=== PATIENT | male | born 1945 | race Caucasian/White ===

== ENCOUNTER 2016-12-07 21:51 | Emergency (ER) | payer OTHER ==
[~2016-12-07] VITALS: Ht 177.8 cm; Wt 65.2 kg
[~2016-12-07 21:51] MED LIST: ACYC-57 PO; ASPI81TA28 PO; ATEN-173 PO; ATOR-22 PO; OMEP40CA PO
[2016-12-07 21:57] VITALS: TEMP 36.7; O2SAT 96; Ht 177.8 cm; Wt 65.2 kg
[2016-12-07 22:04] LABS: BASO ABS # 0.18 K/uL (0-0.2); COMPLETE YES; EOS % 8.3 %; HEMATOCRIT 40.2 % (42-52); IG% 0.2 %; LYMPH % 25.2 %; LYMPH ABS # 2.23 K/uL (1.2-3.4); MEAN CORPUSCULAR HEMOGLOBIN 32.2 pg (25-34); MEAN CORPUSCULAR HGB CONC 32.8 g/dl (32-36); MONO % 9.7 %; NEUT % 54.6 %; PLATELET COUNT 129 K/uL (130-400); WHITE BLOOD COUNT 8.84 K/uL (4.8-10.8)
[2016-12-07 22:38] LABS: ALKALINE PHOSPHATASE 67 U/L (45-117); ALT/SGPT 19 U/L (12-78); BLOOD UREA NITROGEN 20 mg/dl (7-18); BUN/CREATININE RATIO 15.7 (10-20); CARBON DIOXIDE 25 mmol/L (21-32); CHLORIDE 106 mmol/L (98-107); GLUCOSE 154 mg/dl (70-99); SODIUM 139 mmol/L (136-145)
[2016-12-07 22:43] LABS: CALCIUM 8.3 mg/dl (8.5-10.1)
--- NOTE | 2016-12-07 22:58 | DIAGNOSTIC IMAGING REPORT ---
HEAD CT NONCONTRAST CT DOSE: 614.27 mGy.cm HISTORY: dizzy/syncope TECHNIQUE: Multiaxial CT images of the head were performed without the use of intravenous contrast. Automated exposure control was utilized for this study. Comparison: None. Findings: The paranasal sinuses and mastoid air cells are clear. The calvarium and skull base are intact. There is no mass, hematoma, midline shift, acute infarct. White matter hypodensity is nonspecific but suggestive of microvascular ischemic change. The ventricles and sulci demonstrate mild age-related involutional changes. 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 Impression: No acute intracranial abnormality. Atrophy and microvascular ischemic changes. Electronically signed by: Tejas Pompa M.D. 12/07/2016 10:56 PM Dictated Date/Time: 12/07/2016 10:54 PM
[2016-12-07 23:11] LABS: POTASSIUM 4.2 mmol/L (3.5-5.1)
[2016-12-07 23:18] LABS: AST/SGOT 13 U/L (15-37); MAGNESIUM 2.3 mg/dl (1.8-2.4)
[2016-12-07 23:20] VITALS: BP 172/80; PULSE 78; O2SAT 94
--- NOTE | 2016-12-07 23:51 | EMERGENCY ROOM VISIT NOTE ---
ED Visit Note First contact with patient: 21:52 I did evaluate and examine this patient myself. I did guide management for the patient. I agree with the APC's assessment as discussed. Please see the APC's dictation for further details. I did independently review the 12-lead EKG, chest x-ray, CT of the head and blood work. The patient is presenting with a syncopal episode today. He states he was sitting at his desk and when he stood up he passed out. He states that he frequently passes out and this is not unusual for him. He has no other symptoms and denies any chest pain or shortness of breath. He does have some headache from hitting his head on the ground. We did recommend hospitalization for further evaluation given his multiple medical problems. He declined admission and wanted to go back to the [facility] and follow up with the sn[facility] doctor. He states the only reason they sent him here was because his EKG looked different from his prior EKG. His 12- lead EKGs here are unremarkable without any acute changes consistent with acute ischemia. The patient was transferred back to the snf.
--- NOTE | 2016-12-08 | EMERGENCY ROOM VISIT NOTE ---
History First contact with patient: 21:52 Chief Complaint: SYNCOPE (NEAR SYNCOPE) Stated Complaint: SYNCOPE /FR [facility] Nursing Triage Summary: pt states has a hx of passing out, states he normally feels it coming on and he got lightheaded and dizzy, but states he also had some cp yesterday. pmhx of cabg x's2, aortic valve replacement, htn, syncope, History of Present Illness The patient is a 71 year old male who presents to the Emergency Room with complaints of recurrent syncopal episode. Patient had 2 single episodes today. He went to the [facility] and they sent him here. Supposedly had an abnormal EKG. He does not have this here. Patient states he's been passing out for greater than 10 years. Unclear etiology. He is supposed to have tilt testing in the near future. Patient states he got lightheaded and briefly passed out earlier today and then later today he just passed out with no prodromal symptoms. He states he's had both of these episodes several times in the past. This is not new for him. Patient denies chest pain, dyspnea, headache, facial pain, neck pain, back pain, abdominal pain, leg pain, numbness, tingling , weakness or any other medical complaints. Patient states he feels fine. He states he is only here as medical had him come here. Review of Systems See HPI for pertinent positives & negatives. A total of 10 systems reviewed and were otherwise negative. Past Medical/Surgical History Coronary artery disease, syncope, hypertension, hyperlipidemia, splenectomy, cholelithiasis Social History Smoking Status: Current Every Day Smoker Drug Use: none Marital Status: single Occupation Status: other (prisoner) Current/Historical Medications Scheduled Acyclovir (Zovirax), 400 MG PO DAILY Aspirin (Aspirin Ec), 81 MG PO DAILY Atenolol (Tenormin), 50 MG PO QD Atorvastatin (Lipitor), 20 MG PO DAILY Omeprazole (Prilosec), 40 MG PO DAILY Allergies Coded Allergies: No Known Allergies (Unverified , 12/07/16) Physical Exam Vital Signs Date Time Temp Pulse Resp B/P Pulse Ox O2 Delivery O2 Flow Rate FiO2 12/07/16 23:20 68 18 164/76 94 Room Air 69 177/75 78 172/81 12/07/16 23:20 78 18 172/80 94 Room Air 12/07/16 22:03 79 12/07/16 21:57 36.7 79 21 184/83 96 Room Air 12/07/16 21:57 96 Room Air Physical Exam VITALS: Vitals are noted on the nurse's note and reviewed by myself. Vital signs stable. GENERAL: Pleasant male following commands appropriately, in no acute distress, nondiaphoretic, well-developed well-nourished. SKIN: The skin was without rashes, erythema, edema, or bruising. There is no tenting of the skin. Capillary reflex less than 2 seconds. HEAD: Normocephalic atraumatic. EARS: External auditory canals clear, tympanic membranes pearly hanley without erythema or effusion bilaterally. EYES: Pupils equal round and reactive to light and accommodation. Conjunctivae without injection, sclerae without icterus. Extraocular movements intact. NOSE: Patent, turbinates without inflammation or discharge. No sinus tenderness. MOUTH: Mucous membranes moist. Pharynx without erythema or exudate. Uvula midline. Airway patent. Tongue does not deviate. NECK: Supple without nuchal rigidity. No lymphadenopathy. No thyromegaly. Cervical spine is nontender. No JVD. HEART: Regular rate and rhythm 2/6 systolic murmur LUNGS: Clear to auscultation bilaterally without wheezes, rales or rhonchi. No dullness to percussion. No retractions or accessory muscle use. ABDOMEN: Positive bowel sounds x 4. Normal tympanic percussion. Soft, nontender, without masses or organomegaly. Gordon sign negative. No guarding or rebound tenderness. MUSCULOSKELETAL: No muscle atrophy, erythema, or edema noted. NEURO: Patient was alert and oriented to person place and time. Normal sensation to light and sharp touch. No focal neurological deficits. Cranial nerves II through XII grossly intact. No pronator drift. Cerebellar exam intact. Medical Decision & Procedures Laboratory Results 12/07/16 21:42 Red Blood Count 4.10, Mean Corpuscular Volume 98.0, Mean Corpuscular Hemoglobin 32.2, Mean Corpuscular Hemoglobin Concent 32.8, Mean Platelet Volume 11.0, Neutrophils (%) (Auto) 54.6, Lymphocytes (%) (Auto) 25.2, Monocytes (%) (Auto) 9.7, Eosinophils (%) (Auto) 8.3, Basophils (%) (Auto) 2.0, Neutrophils # (Auto) 4.82, Lymphocytes # (Auto) 2.23, Monocytes # (Auto) 0.86, Eosinophils # (Auto) 0.73, Basophils # (Auto) 0.18 12/07/16 21:42 12/07/16 22:53 Test 12/07/16 21:42 12/07/16 22:53 White Blood Count 8.84 K/uL (4.8-10.8) Red Blood Count 4.10 M/uL (4.7-6.1) Hemoglobin 13.2 g/dL (14.0-18.0) Hematocrit 40.2 % (42-52) Mean Corpuscular Volume 98.0 fL (80-100) Mean Corpuscular Hemoglobin 32.2 pg (25-34) Mean Corpuscular Hemoglobin Concent 32.8 g/dl (32-36) Platelet Count 129 K/uL (130-400) Mean Platelet Volume 11.0 fL (7.4-10.4) Neutrophils (%) (Auto) 54.6 % Lymphocytes (%) (Auto) 25.2 % Monocytes (%) (Auto) 9.7 % Eosinophils (%) (Auto) 8.3 % Basophils (%) (Auto) 2.0 % Neutrophils # (Auto) 4.82 K/uL (1.4-6.5) Lymphocytes # (Auto) 2.23 K/uL (1.2-3.4) Monocytes # (Auto) 0.86 K/uL (0.11-0.59) Eosinophils # (Auto) 0.73 K/uL (0-0.5) Basophils # (Auto) 0.18 K/uL (0-0.2) RDW Standard Deviation 50.1 fL (36.4-46.3) RDW Coefficient of Variation 13.9 % (11.5-14.5) Immature Granulocyte % (Auto) 0.2 % Immature Granulocyte # (Auto) 0.02 K/uL (0.00-0.02) Anion Gap 8.0 mmol/L (3-11) Est Creatinine Clear Calc Drug Dose 48.1 ml/min Estimated GFR () 63.6 Estimated GFR (Non- 54.9 BUN/Creatinine Ratio 15.7 (10-20) Calcium Level 8.3 mg/dl (8.5-10.1) Total Bilirubin 0.4 mg/dl (0.2-1) Alanine Aminotransferase (ALT/SGPT) 19 U/L (12-78) Alkaline Phosphatase 67 U/L (45-117) Troponin I < 0.015 ng/ml (0-0.045) Total Protein 7.2 gm/dl (6.4-8.2) Albumin 3.6 gm/dl (3.4-5.0) Thyroid Stimulating Hormone (TSH) 2.630 uIu/ml (0.300-4.500) Magnesium Level 2.3 mg/dl (1.8-2.4) Direct Bilirubin < 0.1 mg/dl (0-0.2) Aspartate Amino Transf (AST/SGOT) 13 U/L (15-37) ED Course Prior records/ancillary studies reviewed. Triage Nursing notes reviewed. Additional history obtained from correction officers. The patient's history was concerning for syncope. Differential diagnosis: Etiologies such as vasovagal event, infection, hypoglycemia, electrolyte abnormalities, cardiac sources, intracerebral event, toxicologic, neurologic, as well as others were entertained. Physical examination: Patient is alert, interactive and well-appearing ER treatment provided: IV hydration with normal saline On reassessment the patient felt better. Diagnostics interpretation by me: ECG: Normal sinus, normal intervals, no acute ST-T wave changes. Impression normal sinus rhythm interpreted by myself The labs revealed negative troponin. No leukocytosis Imaging studies: cranial bleed on head CT. Chest x-ray with no acute consolidation, pneumothorax or free air per my interpretation This appears to be consistent with gaping which is recurrent for the patient. He was offered admission and declined. He understands the risks involved such as cardiac and or neurological problems/. He was strongly encouraged to see the [place] [facility] doctor tomorrow or here in the ER sooner for further workup. Patient verbalized understanding this. He still requested to leave. He was discharged in the custody of the correction officers. Patient is neurovascularly and neurologically intact. He's had been having recurrent syncope for greater than 10 years. This is not new for him. Echo was reviewed from a couple months ago. By the evaluation outlined above emergent etiologies such as infection, hypoglycemia, electrolyte abnormalities, cardiac sources, intracerebral event, toxicologic, neurologic,as well as others were deemed relatively unlikely. The pt informed about the findings as listed above. All questions were answered and pleased with the treatment. Return instructions were outlined and the patient was discharged in stable condition. Referral: The patient was referred back to their primary care physician for follow-up tomorrow for a recheck of the current condition. Case reviewed with my attending Medical Decision As above Impression Primary Impression: Syncope Departure Information Dispostion Other Condition FAIR Forms HOME CARE DOCUMENTATION FORM, IMPORTANT VISIT INFORMATION Patient Instructions Syncope, My [facility] Additional Instructions Strongly recommend that you follow-up for your recurrent syncopal episodes. Rest and drink plenty of fluids as tolerated. Continue current medications. Avoid strenuous activities until cleared by your family doctor. Return to the ER immediately for worsening or persistent syncope, abdominal pain , vomiting, fevers, chest pains, difficulty breathing, worsening of your condition, or as needed. Follow up with your primary physician tomorrow for a recheck of your current condition. Problem Qualifiers Primary Impression: Syncope Syncope type: unspecified Qualified Codes: R55 - Syncope and collapse
--- NOTE | 2016-12-08 08:17 | DIAGNOSTIC IMAGING REPORT ---
CHEST 2 VIEWS ROUTINE HISTORY: syncope COMPARISON: Chest 05/13/2013. FINDINGS: Mild interstitial thickening which is likely chronic. The heart is normal in size. Poststernotomy changes. Mild emphysema. No new focal lung consolidations to suggest pneumonia. No evidence for pulmonary edema. IMPRESSION: Emphysema. No acute process within the chest. Electronically signed by: Tejas Pompa M.D. 12/08/2016 8:16 AM Dictated Date/Time: 12/08/2016 8:15 AM
== END 2016-12-07 23:58 | disposition home or self-care (01) ==
LOC: EDBD 21:51 → C.EDA 21:51
DX: R55 Syncope and collapse (principal); R51 Headache; Z95.1 Presence of aortocoronary bypass graft; Z95.2 Presence of prosthetic heart valve; I10 Essential (primary) hypertension; I25.10 Atherosclerotic heart disease of native coronary artery without angina pectoris; E78.5 Hyperlipidemia, unspecified; Z90.81 Acquired absence of spleen; F17.210 Nicotine dependence, cigarettes, uncomplicated; Z79.82 Long term (current) use of aspirin; Z79.899 Other long term (current) drug therapy

== ENCOUNTER → 2017-02-18 | Outpatient (CLI) | payer OTHER ==
[~2017-02-18] MED LIST changes: -ACYC-57 PO; +ACYC1CAP8 PO; +REGADENOSON 0.4 MG/5 ML SYR ONE
--- NOTE | 2017-02-20 13:08 | MYOCARDIAL PERFUSION SCAN ---
ONE-DAY NUCLEAR MEDICINE TECHNETIUM-99M CARDIOLITE MYOCARDIAL PERFUSION SCAN CLINICAL HISTORY: The patient has known coronary artery disease having undergone bypass surgery previously. He now presents with a chest pain syndrome. COMPARISON: None. TECHNIQUE: For the stress portion of the study, 32.3 mCi of Technetium 99 m Cardiolite IV was injected at 11:35 a.m. 02/18/2017. Thirty minutes following the injection, imaging of the heart was performed in multiple projection. For the rest portion of the study, 10.0 mCi of Technetium 99 m Cardiolite was injected IV at 10 a.m. One hour following the injection, imaging of the heart was performed in the same projections. For the stress portion of the study, 0.4 mg of Lexiscan was injected intravenously as per protocol. The patient did not experience chest discomfort nor EKG changes. Following the study, the patient was hemodynamically stable without complaints. FINDINGS: The short axis, vertical long axis, and horizontal long axis images were reviewed in detail. There is normal myocardial perfusion at both stress and rest, thus excluding a prior myocardial infarction and stress induced myocardial ischemia. Left ventricle demonstrates normal systolic function without wall motion abnormality. The left ventricular ejection fraction is 62%. IMPRESSIONS: 1. No scintigraphic evidence of a prior myocardial infarction or stress induced myocardial ischemia. 2. No Lexiscan induced chest pain. 3. No Lexiscan induced EKG changes. 4. Normal left ventricular systolic function with an ejection fraction of 62%. There are no wall motion abnormalities.
== END | disposition home or self-care (01) ==
LOC: C.NUCL 09:39
PROVIDERS: ATTEND Internal Medicine
DX: I20.9 Angina pectoris, unspecified (principal); I10 Essential (primary) hypertension; R55 Syncope and collapse; I25.10 Atherosclerotic heart disease of native coronary artery without angina pectoris; I35.9 Nonrheumatic aortic valve disorder, unspecified; E78.00 Pure hypercholesterolemia, unspecified; N18.9 Chronic kidney disease, unspecified; Z79.899 Other long term (current) drug therapy

== ENCOUNTER → 2017-03-06 | Outpatient (CLI) | payer OTHER ==
[~2017-03-06] MED LIST changes: +OPTIRAY 320 IV PRN; -REGADENOSON 0.4 MG/5 ML SYR ONE
--- NOTE | 2017-03-06 10:46 | DIAGNOSTIC IMAGING REPORT ---
CT ANGIOGRAPHY OF THE ABDOMEN CLINICAL HISTORY: Aortic aneurysm. COMPARISON STUDY: None available at time of interpretation. TECHNIQUE: Helical axial images of the abdomen were obtained during arterial phase following intravenous injection of 93 cc Optiray 320 IV. Sagittal and coronal reconstructions were viewed as well as maximal intensity projections on an independent 3-D workstation. FINDINGS: Arterial phase images of the liver, adrenal glands and pancreas are unremarkable. There are small gallstones within the gallbladder. There is no biliary or pancreatic ductal dilatation. A 2.9 cm water attenuation lesion arising from the lower pole of the left kidney is consistent with a cyst. A 9 mm hypodense lesion within the upper pole of the left kidney is too small to characterize but likely reflects a cyst. There is no abdominal lymphadenopathy or ascites. Caliber of visualized small and large bowel is normal. Colonic diverticulosis is noted. There are no suspicious osseous lesions. There is mild aneurysmal dilatation of the distal descending thoracic aorta which measures 4.1 x 4 cm. Mixing artifact is noted within the aorta. An infrarenal abdominal aortic aneurysm is noted with aneurysmal dilatation beginning immediately distal to the takeoff of the renal arteries. The abdominal aorta measures 4.7 x 4.3 cm. There is eccentric mural thrombus. There is no evidence for rupture. Extensive atherosclerotic plaque of the abdominal aorta and major branch vessels is noted. There is moderate stenosis at the origin the celiac axis. Superior mesenteric and inferior mesenteric arteries are patent. Mild dilatation of visualized portions of the left common iliac artery is noted, measuring 1.9 cm. IMPRESSION: 1. 4.7 x 4.3 cm infrarenal abdominal aortic aneurysm. Aneurysmal dilatation begins immediately distal to the takeoff of the renal arteries. Extensive atherosclerotic plaque with mural thrombus. Mild dilatation of visualized portions of the proximal left common iliac artery. No rupture. No abdominal aortic dissection. 2. Mild dilatation of the distal descending thoracic aorta which measures 4.1 x 4 cm. 3. 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 4. Cholelithiasis. Electronically signed by: Alphonse Leal M.D. 03/06/2017 10:45 AM Dictated Date/Time: 03/06/2017 10:33 AM
== END ==
LOC: C.CTS 09:47
PROVIDERS: ATTEND Internal Medicine
DX: I71.9 Aortic aneurysm of unspecified site, without rupture (principal)

== ENCOUNTER 2017-06-23 11:30 | Observation (INO) | payer OTHER ==
[~2017-06-23] VITALS: Ht 177.8 cm; Wt 66.7 kg
[2017-06-23] MEDS: CEFAZOLIN 1000MG IV PUSH 5 ML IV SCH ×2 (10:45→15:44)
[~2017-06-23 11:30] MED LIST changes: +ACYC-57 PO; -ACYC1CAP8 PO; +LACTATED RINGER'S 1000ML 1,000 ML IV SCH; -OPTIRAY 320 IV PRN
[2017-06-23] MEDS ORDERED: METO25TA3 PO (11:45)
[2017-06-23] MEDS ORDERED: IRBE1TAB50 PO (11:45)
[2017-06-23] MEDS ORDERED: ISOSPOW2 (11:45)
[2017-06-23 11:50] VITALS: BP 195/90; PULSE 65; TEMP 36.5; O2SAT 98; BMI 22.0
[2017-06-23] MEDS ORDERED: MIDAZOLAM HCL 5 MG/ML 1 ML VIAL ONE (12:58)
[2017-06-23] MEDS ORDERED: FENTANYL CITRATE INJ 50 MCG/1 ML 2 ML VIAL ONE (12:58)
[2017-06-23] MEDS ORDERED: BACITRACIN 50000 UNIT VIAL ONE (12:59)
[2017-06-23] MEDS ORDERED: LIDOCAINE HCL 1% 20 ML VIAL ONE (12:59)
--- NOTE | 2017-06-23 13:10 | History & Physical Bridge Note ---
H&P Re-Evaluation Bridge Note: I have examined the patient, reviewed the History & Physical and in the interval since the performance of the History & Physical I have noted the following changes of clinical significance: No changes noted. He has had several more episodes of syncope and loop recorder interrogation shows further episodes of extreme bradycardia and long pauses. I reviewed the indications, procedure, risks and alternatives of pacer implantation and loop recorder explantation with patient as well an conscious sedation and he understands and agrees to proceed. Consent for surgery and conscious sedation obtained.
--- NOTE | 2017-06-23 13:11 | Procedure Note ---
Pre-Mod Sedation Assessment General Date of Moderate Sedation: Jun 23, 2017. Vital Signs: Vital Signs Past 12 Hours Date Time Temp Pulse Resp B/P (MAP) Pulse Ox O2 Delivery O2 Flow Rate FiO2 06/23/17 11:50 36.5 65 18 195/90 (125) 98 Room Air Review Cardiovascular: regular rate, rhythm Abdomen: normal bowel sounds Lungs: lungs clear Airway Class: II Pre-Sedation Airway Assessment Able to Visualize Vocal Cords: Yes Short Thick Neck: No Hx of Sleep Apnea: No Smoking Status: Current Every Day Smoker Mallampati Classification: Class II ASA Classification: Class III Procedure Planning Contraindications-for Mod Sed: None Yes Notes The planned sedation has been discussed with the patient and consent obtained. I have identified the patient, determined the appropriateness of sedation and have assessed the patient immediately prior to the procedure. All medicine(s) and interventions are by my order.
[2017-06-23] MEDS ORDERED: BACITRACIN OINT 0.9 GM PKT ONE (14:25)
--- NOTE | 2017-06-23 14:56 | [facility] Operative Report ---
Operative Report Operative Date Jun 23, 2017. Pre-Operative Diagnosis Sinus node dysfunction Post-Operative Diagnosis same Procedure(s) Performed 1. Dual-chamber pacemaker implantation 2. Loop recorder explantation1 Surgeon Dr. Allan Ply Bander Surgeon(s) none Estimated Blood Loss 20 cc Findings Good pacemaker lead position, good measurements. Successful loop recorder explantation Specimens Loop recorder, return to Medtronic Anesthesia local with sedation Complication(s) None Disposition PCU Description of Procedure After obtaining informed consent for the procedure, the patient was brought to the laboratory and prepped and draped in the standard sterile manner. The left prepectoral region was anesthetized with 1% lidocaine local anesthetic and left axillary venipuncture was performed by percutaneous technique and a guidewire placed through the left subclavian vein into the superior vena cava. The area was further infiltrated with 1% lidocaine local anesthetic and a 5 cm incision was made parallel to the left clavicle and 2 cm below it and carried down to the anterior pectoralis fascia. A pacemaker pocket was formed by blunt dissection anterior to the pectoralis fascia and a bacitracin-soaked sponge (50, 000 units in 50 cc normal saline solution) was placed in the pocket. An 8 [place] Medtronic lead introducer was placed over the guidewire into the left subclavian vein, the dilator and guidewire were removed and a bipolar active fixation steroid tipped ventricular lead was advanced through the introducer into the superior vena cava. A guidewire was placed through the introducer and the introducer was stripped from the lead and guidewire. Another 8 [place] Medtronic lead introducer was placed over the guidewire into the left subclavian vein, the dilator and guidewire were removed and a bipolar active fixation steroid tipped atrial lead was advanced through the introducer into the superior vena cava. A guidewire was placed back through the introducer and the introducer was stripped from the lead and guidewire. Using a curved stylette the ventricular lead was advanced through the right ventricular outflow tract into the pulmonary artery and then using a straight stylette was positioned in the right ventricular apex. The screw was extended fixing the lead in position. Pacing and sensing thresholds were evaluated in bipolar configuration and are recorded on the implant data sheet. Using a curved stylette the atrial lead was positioned in the region of the atrial appendage and the screw extended fixing the lead in position. Pacing and sensing thresholds were evaluated in bipolar configuration and are recorded on the implant data sheet. Once the leads were in position they were attached to the anterior pectoralis fascia using 2 sutures of 2-0 silk around each lead collar. The bacitracin- soaked sponge was removed from the pocket, hemostasis was obtained, the pacemaker was attached to the leads and placed in the pocket with the leads coiled beneath it. The incision was closed with a running double subcutaneous closure of 3-0 V-Lock absorbable suture, followed by running subcuticular skin closure of 4-0 Vicryl absorbable suture. Bacitracin ointment was placed on the incision and a pressure dressing applied. The patient remained prepped and draped in the standard sterile manner for a loop recorder removal. The area was infiltrated with 1% lidocaine local anesthetic and a 1 cm incision was made through the old implant scar and carried down to the loop recorder. The loop recorder was dissected free of tissue and explanted. The incision was closed with a subcutaneous continuous closure of 4-0 Vicryl followed by running subcuticular skin closure of 4-0 Vicryl. Steri-Strips were applied and bacitracin ointment was placed on the incision. A dressing was applied. I attest to the content of the Intraoperative Record and any orders documented therein. Any exceptions are noted below.
[2017-06-23] MEDS ORDERED: KETOROLAC TROMETHAMINE 10 MG TAB PO PRN (15:00)
[2017-06-23] MEDS ORDERED: ACETAMINOPHEN 325 MG TAB PO PRN (15:00)
[2017-06-23 15:03] VITALS: BP 179/79; PULSE 80; TEMP 36.4; O2SAT 94; Ht 177.8 cm; Wt 66.7 kg
--- NOTE | 2017-06-23 15:05 | Procedure Note ---
Post-Mod Sedation Assessment General Date of Moderate Sedation Jun 23, 2017. Vital Signs: Vital Signs Past 12 Hours Date Time Temp Pulse Resp B/P (MAP) Pulse Ox O2 Delivery O2 Flow Rate FiO2 06/23/17 14:40 69 16 122/66 (84) 100 Nasal Cannula 3 06/23/17 11:50 36.5 65 18 195/90 (125) 98 Room Air Review - Discharge Criteria Vital Signs Stable: Yes Alert/Oriented/Conversant: Yes Returned to Baseline Mental St: Yes Nausea Absent/Minimal: Yes Pain/Discomfort/Absent/Minimal: Yes Normal/Baseline Respirations: Yes Active Bleeding?: No
[2017-06-23 19:17] VITALS: BP 177/74; PULSE 95; TEMP 36.8; O2SAT 94
[2017-06-23] MEDS: CEFAZOLIN IV 1,000 MG in SYRINGE 0 ML IV SCH (20:23)
[2017-06-23 23:38] VITALS: BP 124/61; PULSE 68; TEMP 37.6; O2SAT 92
[2017-06-24 03:45] VITALS: BP 131/68; PULSE 60; TEMP 37; O2SAT 94
[2017-06-24] MEDS: CEFAZOLIN IV 1,000 MG in SYRINGE 0 ML IV SCH ×2 (03:47→11:49)
--- NOTE | 2017-06-24 07:03 | DIAGNOSTIC IMAGING REPORT ---
CHEST 2 VIEWS ROUTINE CLINICAL HISTORY: Chest x-ray status post pacemaker placement COMPARISON STUDY: 11/29/2016 FINDINGS: The cardiac and mediastinal contours remain stable. There is been interval placement of a left subclavian dual-chamber central venous pacemaker. On the lateral view, the ventricular electrode extends far anteriorly. Its exact position cannot be determined on conventional radiographs. There is blunting of the lateral costophrenic angles. There are postsurgical changes of midline sternotomy and aortic valve replacement. There is pulmonary emphysema. There is no lobar consolidation. No pneumothorax is visualized. IMPRESSION: 1. No evidence of pneumothorax status post placement of a left subclavian dual-chamber central venous pacemaker 2. On the lateral view the ventricular lead extends far anteriorly. Its exact position cannot be determined on conventional radiographs. Electronically signed by: Naif Spangler M.D. 06/24/2017 7:02 AM Dictated Date/Time: 06/24/2017 7:00 AM
[2017-06-24 08:12] VITALS: BP 112/76; PULSE 69; TEMP 36.9; O2SAT 97
[2017-06-24] MEDS ORDERED: PANTOprazole SOD 40 MG TAB PO SCH (09:00)
[2017-06-24] MEDS ORDERED: ATORVASTATIN 20 MG TAB PO SCH (09:00)
[2017-06-24] MEDS ORDERED: ASPIRIN 81 MG ECTAB PO SCH (09:00)
[2017-06-24] MEDS ORDERED: IRBESARTAN 150 MG TAB PO SCH (09:00)
--- NOTE | 2017-06-24 09:41 | Cardiology Follow-Up ---
Subjective Date of Service: Jun 24, 2017. Pt evaluation today including: conversation w/ patient, physical exam, review of studies, review of inpatient medication list History of Present Illness Doing well post-pacemaker, he has no discomfort. He tells me that he feels better in general after pacemaker implantation than before. No further spells overnight. Social History Smoking Status: Current Every Day Smoker History of Alcohol Use: No Review of Systems Respiratory: No shortness of breath Cardiac: No chest pain Objective Vital Signs Past 12 Hours Date Time Temp Pulse Resp B/P (MAP) Pulse Ox O2 Delivery O2 Flow Rate FiO2 06/24/17 08:12 36.9 69 18 112/76 (88) 97 06/24/17 04:00 Room Air 06/24/17 03:45 37.0 60 18 131/68 (89) 94 Room Air 06/23/17 23:59 Room Air 06/23/17 23:38 37.6 68 18 124/61 (82) 92 Last Recorded Weight-Kilograms: 66.700 Physical Exam Constitutional: Level of Distress: NAD Lungs: Auscultation: breath sounds normal Cardiovascular: Heart Auscultation: RRR, no rubs Extremities: no edema The pacemaker site is clean and dry, no swelling or hematoma. Ecchymosis as expected is present. The loop recorder site had a slight amount of bleeding on the dressing. Both dressings changed. Data Imaging: Chest x-ray shows good lead placement, no pneumothorax EKG: Postop electrocardiogram shows appropriate pacemaker inhibition. No significant abnormality. Telemetry reviewed: Telemetry monitoring shows appropriate intermittent atrial pacing. No ventricular pacing. Pacemaker evaluation: Good pacing and sensing characteristics. Assessment and Plan #1. Postop day #1: Doing well post-pacemaker implantation and loop recorder explantation. The sites look good, the pacemaker is working well there is no pneumothorax on x-ray. Stable for discharge after his last dose of antibiotics.
[2017-06-24] MEDS ORDERED: TPRSR/50 PO (09:45)
--- NOTE | 2017-06-24 10:19 | Discharge Instructions ---
Discharge Instructions Date of Service Jun 24, 2017. Admission Reason for Admission: -- Syncope -- Sinus Arrest -- Pacemaker Implantation. -- Sinus Node Dysfunction. -- Removal of Med[employer] LINQ ILR. Secondary Diagnoses: -- CAD s/p CABG. -- Aortic and Mitral Valvular Heart Disease. -- Hypertension. -- Dyslipidemia. -- AAA. -- PAD. -- Carotid Bruit. -- ITP. Discharge Discharge Diagnosis / Problem: Sinus Node Arrest / Syncope s/p Dual Chamber Pacemaker. Discharge Goals Goal(s): Improve function, Improve disease control, Therapeutic intervention Activity Recommendations Activity Limitations: per Instructions/Follow-up section (Do not lift your Left Arm above the level of your shoulder for 3 weeks.) Lifting Limitations: no more than 5 pounds (No lifting > 5 pounds with Left arm for 3 weeks.) Exercise/Sports Limitations: gradually increase as tolerated May Resume Sexual Activity: after follow-up appointment Shower/Bathe: may shower/bathe in 3 days, keep incision dry Driving or Machine Use: no limitations As noted above. . Current Hospital Diet Patient's current hospital diet: AHA Diet (Heart Healthy) Discharge Diet Recommended Diet: AHA Diet (Heart Healthy) Fluid Restriction: None Procedures Procedures Performed: -- Medtronic Germaine Ramos Pacemaker Placement 06/23/2017. -- Explantation of Med[employer]onic LINQ ILR 06/23/2017. Pending Studies Studies pending at discharge: no Work Instructions Return To Work: after follow-up Lifting Limitations: As noted. Medical Emergencies . Who to Call and When: Medical Emergencies: If at any time you feel your situation is an emergency, please call 911 immediately. . Non-Emergent Contact Non-Emergency issues call your: Primary Care Provider, [facility] Contact Number: [phone] Call Non-Emergent contact if: you have a fever, your pain is not controlled, wound has increased drainage, wound has increased redness, wound has increased pain, you have any medication questions . Past History Medical & Surgical History: (1) Syncope and collapse (2) Sinus arrest (3) Pacemaker (4) Sinus bradycardia (5) CAD (coronary artery disease) (6) S/P CABG (coronary artery bypass graft) (7) AAA (abdominal aortic aneurysm) (8) Dyslipidemia (9) PAD (peripheral artery disease) (10) Carotid artery bruit (11) Mitral and aortic valve disease (12) ITP (idiopathic thrombocytopenic purpura) (13) Hypertension . "Provider Documentation" section prepared by Sukhi Munguia. . Loader Operator Supervisor Recommendations Loader Operator Supervisor Recommendations 1. Wound check in 3 days -- Please have senior living Medical Staff check it. 2. Pacemaker Clinic with Sukhi Munguia PA-C at [address] [id number]. -- Our news library director will contact LOUIE Garcia to set up this appointment. VTE Core Measure Inpt VTE Proph given/why not?: Treatment not indicated [place] Drug Monitoring Program Search Results: no issues identified
[2017-06-24 11:23] VITALS: BP 112/76; PULSE 69; TEMP 36.9; O2SAT 97
== END 2017-06-24 15:18 | disposition home or self-care (01) ==
LOC: C.ACU 11:30 → ENRESERV 13:56 → C.2T 15:04
PROVIDERS: ADMIT Internal Medicine Cardiovascular Disease; ATTEND Internal Medicine Cardiovascular Disease
DX: I49.5 Sick sinus syndrome (principal); I45.5 Other specified heart block; R55 Syncope and collapse; I25.10 Atherosclerotic heart disease of native coronary artery without angina pectoris; I08.0 Rheumatic disorders of both mitral and aortic valves; I10 Essential (primary) hypertension; M19.90 Unspecified osteoarthritis, unspecified site; E78.5 Hyperlipidemia, unspecified; I73.9 Peripheral vascular disease, unspecified; F17.200 Nicotine dependence, unspecified, uncomplicated; Z79.82 Long term (current) use of aspirin